=== PATIENT | male | born 1970 | race Caucasian/White ===

== ENCOUNTER 2022-11-11 09:58 | Outpatient (CLI) | payer MEDICAID, SELFPAY ==
--- NOTE | 2022-11-11 06:00 | DI.RAD_ITS ---
Exam(s) XR PAIN CLINIC CERVICAL SP 2V EXAM: XR PAIN CLINIC CERVICAL SP 2V CLINICAL HISTORY: Dx: Cervical Radiculopathy. TECHNIQUE: Fluoroscopy was provided for the referring physician for guidance with performing pain cl inic injection procedure. COMPARISON: No exams were available for comparison FINDINGS: Please see procedure note for details. Fluoro time: 8.8 seconds RADIATION DOSE DELIVERED: Ka,r=49.1 mGy
[2022-11-11 10:15] VITALS: BP 109/75; PULSE 79; RESP 20; TEMP 36.6; O2SAT 99
[2022-11-11] MEDS: Dexamethasone Sod. Phos./Pres-Free 10 MG/ML VIAL IJ (10:57)
--- NOTE | 2022-11-11 10:59 | PDOC.PAIN ---
Date of service: 11/11/22 Time of Service: 10:59 Pain Managment Procedure Note Procedure Note Procedure Note: Procedure Note Cervical Interlaminar Epidural Steroid Injection Date of Service: November 11, 2022 Patient:LVOE SMALL III? Provider:? Rogelio Martinez DO, MPH LOVE has been referred to the [facility] for cervical epidural steroid injection.? Pre-operative diagnosis: Cervical Radiculopathy Post-operative diagnosis: Same Pre-procedure pain: VAS= 5/10 Comments: He was seen in the Neurosurgery Department at [facility] and was sent here for this procedure. He will follow up with them. He has neck pain radiating to the left arm LOVE was interviewed and the medical record was reviewed.? There were no medical, pharmacologic, radiographic or other structural contraindications to attempting fluoroscopically guided cervical interlaminar epidural steroid injection.? Risks, potential side effects, indications, and potential benefits of the procedure were reviewed with LOVE.? Questions and concerns were addressed.? After it was clear that the patient was fully informed about the procedure, the printed consent form was signed by the patient and myself.? LOVE was placed in the prone position on the fluoroscopy table and automated blood pressure cuff as well as pulse oximeter was applied. A standard time-out procedure was performed. The skin entry point for entering the epidural space by a midline C7-T1 interlaminar approach was identified under fluoroscopy and marked.? The skin entry point was thoroughly cleaned with Chlorhexadine preparation and the skin was draped.? Next a mixture of 2 mls of 1% lidocaine was infiltrated into the area of the planned skin entry point and underlying subcutaneous tissues.? Next an 18 gauge Tuohy needle was placed under fluoroscopic guidance and with loss of resistance technique into the epidural space utilizing multiple AP and 55 degree contralateral fluoroscopic views.? Upon correct needle placement and loss of resistance, there were no paresthesia or return of blood or CSF through the needle. Next 1 mls of preservative-free Omnipaque 240 was injected with clear epidural spread in the A/P and oblique views. Next, a solution of 15 mg of preservative-free Dexamethasone was injected. This was followed with 1ml of preservative-free normal saline. No unusual discomfort was expressed by LOVE. The needle was withdrawn without difficulty. (49 mls of Omnipaque and 5 mg of Dexamethasone was wasted) LOVE was observed and was without hemodynamic, neurologic, or allergic reactions.? Fluoroscopic images were digitally archived. BERNADETTEs vital signs were stable throughout the procedure and were as recorded in the doc flowsheet by the nursing staff.? If given, dosages of intravenous drugs for anxiolysis and analgesia were documented in MAR. Follow up plans and appointments were discussed with LOVE.? Post procedure instruction was given as documented in nursing documentation and having met discharge criteria, LOVE [facility] the [facility]. A retrospective review of interlaminar cervical ESIs found that approximately two-thirds of patients with symptomatic cervical radiculopathy from disc herniation were able to avoid surgery for up to 1 year with treatment. Success rate was improved with earlier injection (< 100 days from diagnosis). Mariajose EL, Amanda V, Vj L, Kristi AN, Giovanny JUAREZ. Cervical epidural steroid injections for symptomatic disc herniations. J Spinal Disord Tech. 2006 July;19(3):183-6. ? COMMENTS: No apparent complications. Post-procedure pain: VAS= 0/10. LOVE to contact [facility] as needed. If at least 50% improvement in pain and/or function for at least 3 months is achieved, this procedure can be repeated. I personally completed the entire procedure. ROGELIO MARTINEZ DO, MPH ABPMR-subspecialty board certification in Pain Medicine [facility] [facility]
[2022-11-11] MEDS: Omnipaque 240 MG/ML 50 ML BTL IJ (11:03)
[2022-11-11 11:09] VITALS: BP 113/80; PULSE 67; RESP 16; O2SAT 95
== END 2022-11-11 09:59 | disposition home or self-care (01) ==
LOC: PC 09:58
PROVIDERS: PCP Nurse Practitioner Family; Visit Provider Preventive Medicine Occupational Medicine
DX: M54.12 Radiculopathy, cervical region (principal)
CPT/HCPCS: 62321; 72040; Q9967